=== PATIENT | male | born 1950 | race Caucasian/White ===

== ENCOUNTER 2018-07-24 16:35 | Inpatient (IN) | payer MEDICARE ==
[~2018-07-24] VITALS: Ht 180.3 cm; Wt 55.3 kg
[2018-07-24] MEDS ORDERED: SULFAMETH/TRIMETH 800/160 MG TABLET PO ONE (17:15)
[2018-07-24] MEDS ORDERED: DEXAMETHASONE SOD PHOSPHATE 4 MG INJ IV ONE (17:15)
[2018-07-24] MEDS ORDERED: VANCOMYCIN IV 1,000 MG in IV DEXTROSE 5% 250 ML IV ONE (17:15)
[2018-07-24] MEDS ORDERED: LEVOFLOXACIN 750MG/D5W 150 ML IV ONE ×2 (17:15→17:36)
[2018-07-24 17:35] LABS: BASOPHILS % (AUTO) 0.5 % (0.0-2.0); EOSINOPHILS # (AUTO) 0.5 K/uL (0.0-0.7); EOSINOPHILS % (AUTO) 7.7 % (0.0-7.0); HEMATOCRIT 43.8 % (36.7-47.1); HEMOGLOBIN 15.3 g/dL (12.5-16.3); LYMPHOCYTES # (AUTO) 1.9 K/uL (20.0-40.0); LYMPHOCYTES % (AUTO) 28.2 % (20.5-51.5); MEAN CORPUSCULAR HGB CONC 35 g/dL (32.5-36.3); MEAN CORPUSCULAR VOLUME 88.7 fL (73.0-96.2); MONOCYTES # (AUTO) 0.9 K/uL (2.0-10.0); MONOCYTES % (AUTO) 13.1 % (0.0-11.0); NEUTROPHILS # (AUTO) 3.4 K/uL (1.8-8.9); NEUTROPHILS % (AUTO) 50.5 % (38.5-71.5); PLATELET COUNT (AUTO) 200 K/uL (152-348); RED BLOOD CELL COUNT(AUTO) 4.94 MIL/uL (4.06-5.63); WHITE BLOOD COUNT (AUTO) 6.7 K/uL (3.6-10.2)
[2018-07-24 17:36] LABS: ABG BASE EXCESS 1.2 mmol/L; ABG HCO3 25.3 mmol/L; ABG PCO2 38.6 mmHg (35.0-45.0); ABG PH 7.435 (7.350-7.450); ABG PO2 60.9 mmHg (75.0-100.0); ABG SITE RIGHT RADIAL; ABG TOTAL HEMOGLOBIN 15.4 G/dL (13.5-18.0); COHb 1.8 % (0.5-1.5); MetHb 0.2 % (0.0-1.5); VENT MODE room air
[2018-07-24] MEDS ORDERED: DEXAMETHASONE SOD PHOSPHATE 10 MG INJ ONE (17:36)
[2018-07-24] MEDS ORDERED: SULFAMETH/TRIMETH 800/160 MG TABLET ONE (17:36)
[2018-07-24] MEDS ORDERED: VANCOMYCIN IV 200 ML ONE (17:37)
[2018-07-24 17:42] LABS: CREATININE 1.1 mg/dL (0.6-1.3); POTASSIUM 4.2 mmol/L (3.5-5.1)
[2018-07-24] MEDS ORDERED: MARA150T PO (17:52)
[2018-07-24] MEDS ORDERED: CITA20TA16 PO (17:52)
[2018-07-24] MEDS ORDERED: DARU1TAB PO (17:52)
[2018-07-24] MEDS ORDERED: DOLU50TA PO (17:52)
[2018-07-24] MEDS ORDERED: CHOL20004 PO (17:52)
[2018-07-24] MEDS ORDERED: PREG300C PO (17:52)
[2018-07-24 17:54] LABS: BILIRUBIN,DIRECT 0.1 mg/dL (0.0-0.2); BILIRUBIN,TOTAL 0.4 mg/dL (0.2-1.0); TOTAL PROTEIN, SERUM 8.3 g/dL (6.4-8.2)
[2018-07-24] MEDS ORDERED: PREGABALIN 300 MG PO SCH (18:15)
[2018-07-24] MEDS ORDERED: Medication Not On Formulary EA (Cholecalciferol (Vitamin D3) (Vitamin D CAPSULE) 2,000 U PO SCH (18:15)
[2018-07-24] MEDS ORDERED: MARAVIROC 150 MG PO SCH (18:15)
[2018-07-24] MEDS ORDERED: Medication Not On Formulary EA (Dolutegravir Sodium (Tivicay) 50 MG) PO SCH (18:15)
--- NOTE | 2018-07-24 18:29 | NUR ---
dr. jack at bedside talking to pt.
--- NOTE | 2018-07-24 19:07 | NUR ---
pt transfered to floor instable condition.
[2018-07-24 19:39] VITALS: BP 122/94
[2018-07-24] MEDS ORDERED: Z GUARD REMEDY PASTE 57 GM TUBE TOP PRN (22:00)
[2018-07-24] MEDS ORDERED: MAGNESIUM HYDROXIDE 30 ML LIQUID UDC PO PRN (22:00)
[2018-07-24] MEDS ORDERED: ONDANSETRON 4 MG/2 ML VIAL IV PRN (22:00)
[2018-07-24] MEDS ORDERED: HYDROCODONE/APAP 5-325MG TABLET PO PRN (22:00)
[2018-07-24] MEDS ORDERED: SULFAMETHOXAZOLE/TRIMETHOPRIM 10 ML VIAL IV ONE (22:52)
[2018-07-24] MEDS ORDERED: AZITHROMYCIN 500 MG VIAL IV ONE (22:52)
[2018-07-24] MEDS ORDERED: CEFTRIAXONE 1 G VIAL ONE (22:53)
[2018-07-24] MEDS: CEFTRIAXONE 1 G in IV DEXTROSE 5% 50 ML IV SCH (23:20)
[2018-07-24] MEDS: ENOXAPARIN SODIUM 40 MG/0.4 ML DISP.SYRIN SQ SCH (23:26)
[2018-07-24] MEDS: SULFAMETHOXAZOL/TRIMETHOPRI IV 20 ML in IV DEXTROSE 5% 500 ML IV SCH (23:28)
[2018-07-24] MEDS: AZITHROMYCIN IV 500 MG in IV DEXTROSE 5% 250 ML IV SCH (23:30)
[2018-07-24 23:49] VITALS: BP 127/87
[2018-07-25] MEDS: IV NS 1000 ML 1,000 ML IV PRN (00:40)
[2018-07-25] MEDS ORDERED: SULFAMETHOXAZOLE/TRIMETHOPRIM 10 ML VIAL IV ONE (03:26)
[2018-07-25 03:52] VITALS: BP 123/84
[2018-07-25 06:21] LABS: ABG BASE EXCESS -1.6 mmol/L; ABG HCO3 21.5 mmol/L; ABG PH 7.446 (7.350-7.450); ABG PO2 76.2 mmHg (75.0-100.0); ABG SITE RIGHT RADIAL; ABG TOTAL HEMOGLOBIN 14.4 G/dL (13.5-18.0); COHb 1.2 % (0.5-1.5); MetHb 0.3 % (0.0-1.5); O2Hb 94.5 % (94.0-97.0); VENT MODE Nasal Cannula
[2018-07-25] MEDS: SULFAMETHOXAZOL/TRIMETHOPRI IV 20 ML in IV DEXTROSE 5% 500 ML IV SCH ×3 (06:23→22:02)
[2018-07-25 07:01] LABS: BASOPHILS % (AUTO) 0.5 % (0.0-2.0); LYMPHOCYTES # (AUTO) 1.4 K/uL (20.0-40.0); LYMPHOCYTES % (AUTO) 20.9 % (20.5-51.5); MEAN CORPUSCULAR HEMOGLOBIN 30.9 uug (23.8-33.4); MEAN CORPUSCULAR HGB CONC 34 g/dL (32.5-36.3); MEAN CORPUSCULAR VOLUME 90.2 fL (73.0-96.2); MONOCYTES # (AUTO) 0.2 K/uL (2.0-10.0); MONOCYTES % (AUTO) 3.2 % (0.0-11.0); NEUTROPHILS # (AUTO) 4.9 K/uL (1.8-8.9); NEUTROPHILS % (AUTO) 75.4 % (38.5-71.5); PLATELET COUNT (AUTO) 231 K/uL (152-348); RED BLOOD CELL COUNT(AUTO) 4.54 MIL/uL (4.06-5.63); WHITE BLOOD COUNT (AUTO) 6.5 K/uL (3.6-10.2)
[2018-07-25 07:19] LABS: BILIRUBIN,TOTAL 0.3 mg/dL (0.2-1.0); CREATININE 1.4 mg/dL (0.6-1.3); MAGNESIUM 1.8 mg/dL (1.8-2.4); PHOSPHOROUS 2.4 mg/dL (2.5-4.9); POTASSIUM 4.1 mmol/L (3.5-5.1); TOTAL PROTEIN, SERUM 8.7 g/dL (6.4-8.2)
[2018-07-25] MEDS: CHOLECALCIFEROL 1,000 UNIT TABLET PO SCH (09:31)
[2018-07-25] MEDS: PREGABALIN 100 MG CAPSULE PO SCH ×2 (09:31→17:26)
[2018-07-25] MEDS ORDERED: ALBUTEROL SULFATE 2.5 MG/3 ML NEBU NEB PRN (11:15)
[2018-07-25 11:25] VITALS: BP 129/85
[2018-07-25] MEDS: CITALOPRAM 20 MG TABLET PO SCH (12:42)
[2018-07-25 14:34] LABS: *BILIRUBIN,URIN NEGATIVE (NEGATIVE); *BLOOD, URINE Trace-intact (NEGATIVE); *CLARITY,URINE CLEAR (CLEAR); *COLOR,URINE YELLOW (YELLOW); *KETONES,URINE NEGATIVE (NEGATIVE); *PROTEIN,URINE NEGATIVE (NEGATIVE); *UROBILINOGEN,URINE 0.2 E.U./dl (NORMAL); LEUKOCYTE ESTERASE ,URINE NEGATIVE (NEGATIVE); NITRITE, URINE NEGATIVE (NEGATIVE); UGLUCOSE NEGATIVE (NEGATIVE)
[2018-07-25 14:46] LABS: *URINE TOTAL PROTEIN RANDOM 6.7 mg/dL (<150/24HR)
[2018-07-25 14:56] LABS: MUCUS,URINE FEW /LPF (0-FEW); WBC,URINE 0-3 /HPF (0-3)
[2018-07-25 15:13] VITALS: BP 127/82
[2018-07-25] MEDS ORDERED: NEUTRA PHOS PACKET PO ONE (15:30)
--- NOTE | 2018-07-25 18:56 | NUR ---
PT OBSERVED RESTING IN BED WITH NO SIGNS OF RESPIRATORY DISTRESS. CONTINUE TO MONITOR PT.
[2018-07-25 20:00] VITALS: BP 121/73
--- NOTE | 2018-07-25 21:00 | NUR ---
Nursing Note: Pt resting comfortably in bed. No apparent distress at this time. Frequent visual checks done. Bed in low and locked position. Frequent visual checks. Will continue to monitor.
[2018-07-25] MEDS: AZITHROMYCIN IV 500 MG in IV DEXTROSE 5% 250 ML IV SCH (22:02)
[2018-07-25] MEDS: CEFTRIAXONE 1 G in IV DEXTROSE 5% 50 ML IV SCH (22:02)
[2018-07-25] MEDS: ENOXAPARIN SODIUM 40 MG/0.4 ML DISP.SYRIN SQ SCH (22:09)
[2018-07-26 04:00] VITALS: BP 128/86
[2018-07-26 04:07] LABS: *BASOS 0 % (Not Estab.); *EOS 0 % (Not Estab.); *HCT 42.4 % (37.5-51.0); *HGB 14.4 g/dL (13.0-17.7); *IMMATURE GRANULOCYTES 0.1 x10E3/uL (0.0-0.1); *IMMATURE GRANULOCYTES 1 % (Not Estab.); *LYMPHOCYTES 22 % (Not Estab.); *LYMPHOCYTES ABSOLUTE 2.3 x10E3/uL (0.7-3.1); *MCH 30.3 pg (26.6-33.0); *MCV 89 fL (79-97); *MONOCYTES 10 % (Not Estab.); *NEUTROPHILS 67 % (Not Estab.); *NEUTROPHILS ABSOLUTE 7.1 x10E3/uL (1.4-7.0); *PLT 286 x10E3/uL (150-379); *RBC 4.75 x10E6/uL (4.14-5.80); *RDW 14.2 % (12.3-15.4); *WBC 10.5 x10E3/uL (3.4-10.8)
[2018-07-26] MEDS: SULFAMETHOXAZOL/TRIMETHOPRI IV 20 ML in IV DEXTROSE 5% 500 ML IV SCH (05:11)
[2018-07-26 06:17] LABS: BASOPHILS % (AUTO) 0.2 % (0.0-2.0); EOSINOPHILS # (AUTO) 0.1 K/uL (0.0-0.7); EOSINOPHILS % (AUTO) 1.3 % (0.0-7.0); HEMOGLOBIN 14.2 g/dL (12.5-16.3); LYMPHOCYTES # (AUTO) 2.7 K/uL (20.0-40.0); LYMPHOCYTES % (AUTO) 32.4 % (20.5-51.5); MEAN CORPUSCULAR HGB CONC 35 g/dL (32.5-36.3); MEAN CORPUSCULAR VOLUME 89.4 fL (73.0-96.2); MONOCYTES % (AUTO) 11.5 % (0.0-11.0); NEUTROPHILS # (AUTO) 4.6 K/uL (1.8-8.9); NEUTROPHILS % (AUTO) 54.6 % (38.5-71.5); PLATELET COUNT (AUTO) 217 K/uL (152-348); RED BLOOD CELL COUNT(AUTO) 4.58 MIL/uL (4.06-5.63); WHITE BLOOD COUNT (AUTO) 8.3 K/uL (3.6-10.2)
[2018-07-26 06:33] LABS: BILIRUBIN,TOTAL 0.3 mg/dL (0.2-1.0); CREATININE 1.4 mg/dL (0.6-1.3); MAGNESIUM 1.6 mg/dL (1.8-2.4); PHOSPHOROUS 3.6 mg/dL (2.5-4.9); TOTAL PROTEIN, SERUM 7.8 g/dL (6.4-8.2)
[2018-07-26] MEDS: CHOLECALCIFEROL 1,000 UNIT TABLET PO SCH (08:12)
[2018-07-26] MEDS: PREGABALIN 100 MG CAPSULE PO SCH ×2 (08:12→16:01)
[2018-07-26] MEDS: CITALOPRAM 20 MG TABLET PO SCH (08:12)
[2018-07-26] MEDS ORDERED: MAGNESIUM SULFATE/D5W 100 ML IV SCH (08:45)
[2018-07-26] MEDS ORDERED: MAGNESIUM OXIDE 400 MG TABLET PO ONE ×2 (09:15)
[2018-07-26 11:50] VITALS: BP 115/71
[2018-07-26 12:07] LABS: *HELPER T-LYMPH MARKR(CD4)ABSO 191 /uL (359-1519); *HELPER T-LYNPH MARKER CD4)% 8.3 % (30.8-58.5)
[2018-07-26] MEDS: SULFAMETH/TRIMETH 800/160 MG TABLET PO SCH ×2 (13:55→21:16)
[2018-07-26 15:35] VITALS: BP 125/82
[2018-07-26 19:33] VITALS: BP 123/63
--- NOTE | 2018-07-26 20:00 | NUR ---
PATIENT IS AWAKE IN BED, WATCHING TV, AAOX4. DENIES PAIN OR SOB ON ASSESSMENT. O2 ON ORDERED. SAFETY MEASURES IN PLACE. CALL LIGHT LEFT WITHIN PATIENT'S REACH
[2018-07-26] MEDS: AZITHROMYCIN 250 MG TABLET PO SCH (21:11)
[2018-07-26] MEDS: CEFTRIAXONE 1 G in IV DEXTROSE 5% 50 ML IV SCH (21:11)
[2018-07-26] MEDS: IV NS 1000 ML 1,000 ML IV PRN (21:15)
[2018-07-26] MEDS: ENOXAPARIN SODIUM 40 MG/0.4 ML DISP.SYRIN SQ SCH (21:17)
[2018-07-27 03:45] VITALS: BP 131/83
[2018-07-27] MEDS: SULFAMETH/TRIMETH 800/160 MG TABLET PO SCH ×3 (05:55→21:14)
--- NOTE | 2018-07-27 06:23 | NUR ---
PATIENT SLEPT WELL THROUGH THE SHIFT. NO C/O PAIN OR ACUTE DISTRESS ON THIS SHIFT. NO SOB OR FEVER.NO SIGNIFICANT CHANGES IN STATUS
--- NOTE | 2018-07-27 07:15 | NUR ---
Received patient in bed, awake, alert and oriented x4, in no acute distress. Denies chest pain or SOB at this time. LFA IV site intact, IV fluids running at 80cc/hr, able to tolerate well. Will continue to monitor
[2018-07-27 08:06] LABS: A/G RATIO 0.7 (0.7-1.7); ALBUMIN 3.1 g/dL (2.9-4.4); ALPHA-1-GLOBULIN 0.2 g/dL (0.0-0.4); ALPHA-2-GLOBULIN 0.7 g/dL (0.4-1.0); BETA GLOBULIN 1.2 g/dL (0.7-1.3); GAMMA GLOBULIN 2.2 g/dL (0.4-1.8); GLOBULIN, TOTAL 4.3 g/dL (2.2-3.9); M-SPIKE Not Observed g/dL (Not Observed)
[2018-07-27] MEDS: CITALOPRAM 20 MG TABLET PO SCH (08:28)
[2018-07-27] MEDS: CHOLECALCIFEROL 1,000 UNIT TABLET PO SCH (08:28)
[2018-07-27] MEDS: PREGABALIN 100 MG CAPSULE PO SCH ×2 (08:28→17:18)
[2018-07-27] MEDS: IV NS 1000 ML 1,000 ML IV PRN (10:30)
[2018-07-27 11:11] VITALS: BP 111/69
[2018-07-27 14:06] LABS: CREATININE 1.2 mg/dL (0.6-1.3); MAGNESIUM 1.9 mg/dL (1.8-2.4); POTASSIUM 3.9 mmol/L (3.5-5.1)
[2018-07-27] MEDS: ACETAMINOPHEN 325 MG TABLET PO PRN (15:35)
[2018-07-27 15:36] VITALS: BP 161/77
--- NOTE | 2018-07-27 17:16 | NUR ---
End of shift note: Patient is alert and oriented x4, in no acute distress. Denies chest pain or SOB at this time. O2 titrated down to 1LPM via NC, saturating at 93-94%. No acute change of condition noted. All needs attended and met. Will continue to monitor
--- NOTE | 2018-07-27 19:00 | NUR ---
RECEIVED PATIENT IN ROOM, NO SOB NO CHEST PAIN, OXYGEN SAT WNL, NO DESATURATION NOTED, CONT TO MONITOR.
[2018-07-27 20:17] VITALS: BP 133/81
[2018-07-27] MEDS: AZITHROMYCIN 250 MG TABLET PO SCH (20:59)
[2018-07-27] MEDS: CEFTRIAXONE 1 G in IV DEXTROSE 5% 50 ML IV SCH (21:13)
[2018-07-27] MEDS: ENOXAPARIN SODIUM 40 MG/0.4 ML DISP.SYRIN SQ SCH (21:14)
[2018-07-28] MEDS: IV NS 1000 ML 1,000 ML IV PRN (02:03)
[2018-07-28] MEDS: ACETAMINOPHEN 325 MG TABLET PO PRN (03:26)
[2018-07-28 04:46] VITALS: BP 130/76
[2018-07-28] MEDS: SULFAMETH/TRIMETH 800/160 MG TABLET PO SCH ×2 (05:52→13:17)
[2018-07-28 06:02] LABS: BASOPHILS # (AUTO) 0.1 K/uL (0.0-8.0); BASOPHILS % (AUTO) 1.1 % (0.0-2.0); EOSINOPHILS # (AUTO) 0.6 K/uL (0.0-0.7); EOSINOPHILS % (AUTO) 8.8 % (0.0-7.0); HEMATOCRIT 39.2 % (36.7-47.1); HEMOGLOBIN 13.9 g/dL (12.5-16.3); LYMPHOCYTES # (AUTO) 2.1 K/uL (20.0-40.0); LYMPHOCYTES % (AUTO) 33.4 % (20.5-51.5); MEAN CORPUSCULAR HEMOGLOBIN 31.2 uug (23.8-33.4); MEAN CORPUSCULAR HGB CONC 35 g/dL (32.5-36.3); MONOCYTES % (AUTO) 15.2 % (0.0-11.0); NEUTROPHILS # (AUTO) 2.6 K/uL (1.8-8.9); NEUTROPHILS % (AUTO) 41.5 % (38.5-71.5); PLATELET COUNT (AUTO) 194 K/uL (152-348); RED BLOOD CELL COUNT(AUTO) 4.46 MIL/uL (4.06-5.63); WHITE BLOOD COUNT (AUTO) 6.4 K/uL (3.6-10.2)
--- NOTE | 2018-07-28 06:16 | NUR ---
PATIENT SLEPT INTERMITTENTLY, COMPLAIN OF HEADACHES, GIVEN TYLENOL WITH EFFECTIVE RESULTS, NO SOB NO CHEST PAIN, OXYGEN SAT WNL, WITH NON PRODUCTIVE COUGH NOTED, CONT TO MONITOR.
[2018-07-28 06:17] LABS: BILIRUBIN,TOTAL 0.3 mg/dL (0.2-1.0); CREATININE 1.4 mg/dL (0.6-1.3); PHOSPHOROUS 3.6 mg/dL (2.5-4.9); POTASSIUM 4.6 mmol/L (3.5-5.1); TOTAL PROTEIN, SERUM 7.1 g/dL (6.4-8.2)
[2018-07-28 07:25] LABS: EOSINOPHILS % (MANUAL) 7 % (0-8); LYMPHOCYTES % (MANUAL) 33 % (20-40); MONOCYTES % (MANUAL) 15 % (2-10); NEUTROPHILS % (MANUAL) 45 % (42-75)
[2018-07-28] MEDS: CHOLECALCIFEROL 1,000 UNIT TABLET PO SCH (08:37)
[2018-07-28] MEDS: CITALOPRAM 20 MG TABLET PO SCH (08:37)
[2018-07-28] MEDS: PREGABALIN 100 MG CAPSULE PO SCH (08:37)
--- NOTE | 2018-07-28 09:16 | NUR ---
NEW ORDERS NOTED TO DISCHARGE PATIENT HOME TODAY PATIENT AWARE AND STATED THAT HE WILL LEAVE AFTER LUNCH.
--- NOTE | 2018-07-28 10:30 | NUR ---
CALLED THE LAB REGARDING THE RESULT OF THE PNEUMOCICTIC CARINII SMEARS SPOKE TO YANCI STATED THAT THE RESULT IS A SEND OUT AND NOT READY DR BELLA HERE AND SEEN PATIENT AWARE THAT THE RESULT IS PENDING AND THAT PATIENT IS BEING DISCHARGED.PATIENT IS CURRENTLY ON ROOM AIR WITH SATS AT 94-95% WITH NO SHORTNESS OF BREATH.
[2018-07-28 12:00] VITALS: BP 122/78
--- NOTE | 2018-07-28 12:49 | NUR ---
PATIENT STATED THAT HE WILL LEAVE BETWEEN 130-2PM STATED THAT HIS CAR IS HERE IN THE PARKING LOT AND WILL DRIVE HIM SELF HOME [place] REMOVED PATIENT IS BEING PREPPED FOR DISCHARGE AT THIS TIME.
--- NOTE | 2018-07-28 13:50 | NUR ---
PATIENT DISCHARGE WITH DISCHARGE INSTRUCTIONS AND PRESCRIPTIONS AND PATIENT INSTRUCTED TO CONTINUE WITH HIS ANTIBIOTICS ORDERED AND TO FOLLOW UP WITH HIS PRIMARY DOCTOR IN ONE TO TWO WEEKS AND HE EXPRESSED UNDERSTANDING.[facility] PHARMACIST WAS CALLED TO EDUCATE PATIENT ON HIS HOME MEDICATIONS.
== END 2018-07-28 13:50 | disposition home or self-care (01) | DRG 193 ==
LOC: ER 16:40 → TELE 19:04 → MED 07-25 12:35
PROVIDERS: ADMIT Internal Medicine; ATTEND Internal Medicine
DX: J15.9 Unspecified bacterial pneumonia (principal); J96.01 Acute respiratory failure with hypoxia; E87.1 Hypo-osmolality and hyponatremia; Z87.01 Personal history of pneumonia (recurrent); G62.9 Polyneuropathy, unspecified; Z79.899 Other long term (current) drug therapy; Z90.49 Acquired absence of other specified parts of digestive tract; F12.90 Cannabis use, unspecified, uncomplicated; N40.0 Benign prostatic hyperplasia without lower urinary tract symptoms; E88.09 Other disorders of plasma-protein metabolism, not elsewhere classified; J45.909 Unspecified asthma, uncomplicated; N28.9 Disorder of kidney and ureter, unspecified; T37.0X5A Adverse effect of sulfonamides, initial encounter; Y92.238 Other place in hospital as the place of occurrence of the external cause; Z85.820 Personal history of malignant melanoma of skin; Z85.828 Personal history of other malignant neoplasm of skin; Z98.42 Cataract extraction status, left eye; Z82.3 Family history of stroke; Z82.49 Family history of ischemic heart disease and other diseases of the circulatory system; Z83.3 Family history of diabetes mellitus; Z80.0 Family history of malignant neoplasm of digestive organs
CPT/HCPCS: 36415; 36600; 70030-TC; 71045; 76770; 83605; 83615; 83735; 84100; 84155; 84156; 84165; 84300; 85025; 85730; 86361; 87040; 87070; 87086; 87536; 87806; 93005; A4663; J0456; J0696; J1100; J1650; J1956; J3370; J3490; J7030; J7060; Q0144